=== PATIENT | female | born 1995 | race Hispanic/Latino ===

== ENCOUNTER 2021-08-21 02:16 | Emergency (ER) | payer SELFPAY ==
[~2021-08-21] VITALS: Ht 167.6 cm; Wt 78.0 kg
[2021-08-21] MEDS ORDERED: ONDANSETRON HCL INJ 2MG/ML 2ML 2 MG/ML VIAL IV STA (03:26)
[2021-08-21] MEDS ORDERED: KETOROLAC TROMETHAMINE 30 MG/ML VIAL IV STA (03:26)
[2021-08-21] MEDS ORDERED: SODIUM CHLORIDE 0.9% 1000ML 1,000 ML ONE (03:45)
[2021-08-21] MEDS ORDERED: SODIUM CHLORIDE 0.9% 1000ML 1,000 ML IV ONE (03:45)
[2021-08-21] MEDS ORDERED: KETOROLAC TROMETHAMINE 30 MG/ML VIAL ONE (03:45)
[2021-08-21] MEDS ORDERED: ONDANSETRON HCL INJ 2MG/ML 2ML 2 MG/ML VIAL ONE (03:45)
[2021-08-21] MEDS ORDERED: ONDANSETRON ODT4 MG PO (04:47)
[2021-08-21] MEDS ORDERED: IBUPROFEN800 MG PO (04:47)
[2021-08-21 04:52] VITALS: BP 158/80
== END 2021-08-21 04:52 | disposition home or self-care (01) ==
LOC: FSED 03:21
DX: R10.32 Left lower quadrant pain (principal); R10.31 Right lower quadrant pain; M54.50 Low back pain, unspecified; F17.210 Nicotine dependence, cigarettes, uncomplicated
CPT/HCPCS: 74176; 81003; 81025; 96374; 96376; 99284; J1885; J2405; J7030